=== PATIENT | female | born 1975 | race Caucasian/White ===

== ENCOUNTER 2017-04-18 21:44 | Outpatient (CLI) | payer MEDICARE | END 2017-04-18 21:45 | disposition critical access hospital (66) | LOC: EMS 21:44 | PROVIDERS: ATTEND Surgery | DX: S09.90XA Unspecified injury of head, initial encounter (principal); R41.82 Altered mental status, unspecified; M54.2 Cervicalgia; W19.XXXA Unspecified fall, initial encounter ==

== ENCOUNTER 2017-04-18 22:03 | Emergency (ER) | payer MEDICARE ==
--- NOTE | 2017-04-18 22:13 | ED Physician Documentation ---
PD HPI Fall - Stated complaint Stated Complaint: HBD/FALL - Chief complaint Chief Complaint: General - History obtained from History obtained from: Patient, Family - History of Present Illness Mechanism of injury: Unknown Fall distance: Sitting position, From bed, Less than 5ft Where injury occurred: Home, Bar Timing - onset: How many hours ago (1-2) Injury(ies) location: Head, Face Associated symptoms: LOC Symptoms improve with: Rest Worsens with: Movement Contributing factors: Intoxicated Recently seen: Not recently seen - Additional information Additional information: patient was at a bar tonight, drank alcohol, fell from [employer] with reported LOC (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 ) came home and got into bed, within few minutes, had gotten up and fallen, this time sustaining chin laceration. 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 oriented x 3) - HEENT HEENT: PERRL, EOMI, Pharynx benign, Dentition benign - Neck Neck: No bony TTP - Cardiac Cardiac: RRR, No murmur - Respiratory Respiratory: No respiratory distress, Clear bilaterally - Abdomen Abdomen: Soft, Non tender - Extremities Extremities: No deformity, No tenderness to palpate, Normal ROM s pain, No edema - Neuro Neuro: dietician 2-12 intact, No motor deficit, No sensory deficit PD ED PE EXPANDED - HEENT HEENT Visual: 1 - laceration (2 cm) - Neuro Neuro: Other (slurred speech) Results - Vitals Vitals: Vital Signs - 24 hr 04/19/17 06:35 Heart Rate 90 Respiratory 16 Rate Blood Pressure 120/65 O2 Saturation 98 Oxygen O2 Source Room air - Labs Labs: Laboratory Tests 04/18/17 04/18/17 04/18/17 22:50 22:50 23:05 WBC 10.0 RBC 4.31 Hgb 14.7 Hct 41.8 MCV 97.1 MCH 34.1 H MCHC 35.2 RDW 12.5 Plt Count 249 MPV 7.1 L Neut # 6.8 H Lymph # 2.6 [place] # 0.5 Eos # 0.0 Baso # 0.1 Absolute Nucleated RBC 0.00 Nucleated RBC % 0.0 Sodium 139 Potassium 3.4 L Chloride 103 Carbon Dioxide 23 Anion Gap 13.0 BUN 7 Creatinine 0.7 Estimated GFR (MDRD) 92 Glucose 100 Calcium 9.6 Urine Color YELLOW Urine Clarity CLEAR Urine pH 6.0 Ur Specific [place] <=1.005 Urine Protein NEGATIVE Urine Glucose (UA) NEGATIVE Urine Ketones NEGATIVE Urine Occult Blood NEGATIVE Urine Nitrite NEGATIVE Urine Bilirubin NEGATIVE Urine Urobilinogen 0.2 (NORMAL) Ur Leukocyte Esterase NEGATIVE Ur Microscopic Review NOT INDICATED Urine Culture Comments NOT INDICATED Urine HCG, Qual NEGATIVE Ethyl Alcohol 286.1 - Rads (name of study) CT head Radiology: Prelim report reviewed, See rad report CT c-spine Radiology: Prelim report reviewed, See rad report Procedures - Laceration (location) Face Length in cm: 2 Wound type: Linear, Into subcut fat Neurovascular status: Sensory intact, Motor intact, Vascular intact Anesthesia: Lidocaine 2% Skin layer closure: Nylon, Size #-0 - enter number (5-0), Other (running, with simple interrupteds as well) Other: Patient tolerated well, Neurovascular intact, Tetanus UTD Complexity: Simple PD MEDICAL DECISION MAKING - ED course Complexity details: reviewed results, re-evaluated patient, considered differential, d/w patient, d/w family ED course: patient became more awake and alert during ED stay, and was awake alert and oriented times three prior to discharge home. Departure - Departure Disposition: Home, Self Care Clinical Impression: Fall Qualifiers: Encounter type: initial encounter Qualified Code(s): W19.XXXA - Unspecified fall, initial encounter Laceration of chin Qualifiers: Encounter type: initial encounter Qualified Code(s): S01.81XA - Laceration without foreign body of other part of head, initial encounter Alcohol intoxication Qualifiers: Complication of substance-induced condition: uncomplicated Qualified Code(s): F10.920 - Alcohol use, unspecified with intoxication, uncomplicated Condition: Good Instructions: ED Alcohol Intoxication, ED Head Injury Closed Sleep Mon, ED Laceration Facial Sutr Tape Follow-Up: Елена Ayon MD [Primary Care Provider] - (Follow up in 7-8 days for removal of the stitches) Discharge Date/Time: 04/19/17 07:18
[2017-04-18 22:57] LABS: BASOPHILS # (AUTO) 0.1 10^3/uL (0.0-0.1); BASOPHILS % (AUTO) 1.3 %; EOSINOPHILS % (AUTO) 0.3 %; HCT - HEMATOCRIT 41.8 % (37.0-47.0); HGB - HEMOGLOBIN 14.7 g/dL (12.0-16.0); LYMPHOCYTES # (AUTO) 2.6 10^3/uL (1.5-3.5); LYMPHOCYTES % (AUTO) 25.6 %; MEAN CORPUSCULAR HEMOGLOBIN 34.1 pg (27.0-31.0); MEAN CORPUSCULAR HGB CONC 35.2 g/dL (32.0-36.0); MEAN CORPUSCULAR VOLUME 97.1 fL (81.0-99.0); MEAN PLATELET VOLUME 7.1 fL (7.9-10.8); MONOCYTES # (AUTO) 0.5 10^3/uL (0.0-1.0); MONOCYTES % (AUTO) 4.9 %; NEUTROPHILS # (AUTO) 6.8 10^3/uL (1.5-6.6); NEUTROPHILS % (AUTO) 67.9 %; RED BLOOD COUNT 4.31 10^6/uL (4.20-5.40); RED CELL DISTRIBUTION WIDTH 12.5 % (12.0-15.0)
[2017-04-18 23:25] LABS: BILIRUBIN,URINE NEGATIVE (NEGATIVE)
[2017-04-18 23:27] LABS: HCG UR QUAL NEGATIVE; UA CHARGE (STRIP ONLY) YES; UR CULTURE IF IND NOT INDICATED
[2017-04-18 23:42] LABS: CALCIUM 9.6 mg/dL (8.5-10.3); CREATININE 0.7 mg/dL (0.4-1.0); POTASSIUM 3.4 mmol/L (3.5-5.0)
--- NOTE | 2017-04-19 | CT Preliminary Report ---
Exam: CT CERVICAL SPINE W/O IMPRESSION: Mild degenerative change at C6-C7. No fracture is identified. [facility] SITE ID: [id number]
--- NOTE | 2017-04-19 00:03 | CT Report ---
EXAM: CT CERVICAL SPINE WITHOUT CONTRAST DATE: 04/18/2017 11:34 PM HISTORY: Fall with head injury. COMPARISONS: None. TECHNIQUE: Thin-section axial images were acquired of the cervical spine without contrast. Post-proce ssing: Coronal and sagittal reformats. Other: None. In accordance with CT protocol optimization, one or more of the following dose reduction techniques w ere utilized for this exam: automated exposure control, adjustment of mA and/or KV based on patient s ize, or use of iterative reconstructive technique. FINDINGS: Alignment: Normal. No scoliosis or spondylolisthesis. Bones: No fracture or bone lesion. Interspace Levels/Facets: C1-C2: Unremarkable. C2-C3: Unremarkable. C3-C4: Unremarkable. C4-C5: Unremarkable. C5-C6: Unremarkable. C6-C7: Mild disk space narrowing. Endplate osteophyte mildly narrows the central canal. C7-T1: Unremarkable. Musculature: Normal. No fatty atrophy. Other: The paravertebral and prevertebral soft tissues are normal. The lung apices are clear. IMPRESSION: Mild degenerative change at C6-C7. No fracture is identified. [facility] Referring Provider Line: [phone] SITE ID: [id number]
[2017-04-19] MEDS ORDERED: LIDOCAINE 2% 10 ML MDV ONE (00:24)
--- NOTE | 2017-04-19 00:35 | CT Preliminary Report ---
Exam: CT HEAD W/O Impression: Extensive white matter hypodensity within the cerebral hemispheres bilaterally, suspect some involvem ent of the left middle cerebellar peduncle. 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 Findings appear more pronounced than in 2007. Ventricles are slitlike, no sulci visible over both convexities. Similar findings present on prior im aging. An element of cerebral edema or recent infarct difficult to exclude with this technique. [facility] The above findings were discussed with Dr. Ruiz by Dr. Peterson Banks at 00:31 hrs on 04/19/17. SITE ID: [id number]
--- NOTE | 2017-04-19 00:38 | CT Report ---
EXAM: CT HEAD EXAM DATE: 04/18/2017 11:26 PM. CLINICAL HISTORY: Fall, head injury. History of CADASIL COMPARISON: 06/23/[address] and MR brain.. TECHNIQUE: Multiaxial CT images were obtained from the foramen magnum to the vertex. IV contrast: Non e. Reformats: Coronal. In accordance with CT protocol optimization, one or more of the following dose reduction techniques w ere utilized for this exam: automated exposure control, adjustment of mA and/or KV based on patient s ize, or use of iterative reconstructive technique. FINDINGS: Extensive roughly symmetric white matter hypodensity throughout both cerebral hemispheres, this is mo re pronounced than in 2007. Within the posterior fossa, a hypodensity within the left middle cerebellar peduncle is questionably present. This is an area frequently degraded by artifact. No sulci are visible over both convexities. Ventricles are somewhat slitlike, similar findings presen t on prior imaging. No midline shift. No definite hemorrhage. Basal cisterns are visible. Skull base, visualized paranasal sinuses, mastoids and calvarium are unremarkable. Impression: Extensive white matter hypodensity within the cerebral hemispheres bilaterally, suspect some involvem ent of the left middle cerebellar peduncle. 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 Findings appear more pronounced than in 2007. Ventricles are slitlike, no sulci visible over both convexities. Similar findings present on prior im aging. An element of cerebral edema or recent infarct difficult to exclude with this technique. [facility] The above findings were discussed with Dr. Ruiz by Dr. Peterson Banks at 00:31 hrs on 04/19/17. Referring Provider Line: [phone] SITE ID: [id number]
[2017-04-19] MEDS ORDERED: BACITRACIN OINT TOP STA (06:38)
[2017-04-19 06:51] VITALS: BP 120/65
[2017-04-19] MEDS ORDERED: BACITRACIN OINT TOP ONE (06:53)
== END 2017-04-19 07:18 | disposition home or self-care (01) ==
LOC: EDUNIT# → EDBD → ED 22:03
DX: S01.81XA Laceration without foreign body of other part of head, initial encounter (principal); W06.XXXA Fall from bed, initial encounter; Y92.013 Bedroom of single-family (private) house as the place of occurrence of the external cause; F10.129 Alcohol abuse with intoxication, unspecified; Z86.73 Personal history of transient ischemic attack (TIA), and cerebral infarction without residual deficits; Z79.82 Long term (current) use of aspirin
CPT/HCPCS: 12011; 36415; 70450; 72125; 80048; 81003; 81025; 85025; 99283; 99284; A9270; G0480; 80320; 81001; 87086

== ENCOUNTER 2019-02-02 16:58 | Outpatient (CLI) | payer MEDICARE ==
--- NOTE | 2019-02-02 18:58 | Ultrasound Report ---
Reason: LOCALIZED SWELLING ON BILATERAL LEGS,FACTOR V DEFI Procedure Date: 02/02/2019 Accession Number: [id number] / [id number] Procedure: US - Duplex Ext Veins Bilateral CPT Code: FULL RESULT: EXAM: BILATERAL LOWER EXTREMITY VENOUS ULTRASOUND EXAM DATE: 02/02/2019 06:40 PM. CLINICAL HISTORY: LOCALIZED SWELLING ON BILATERAL Legs, factor V DEFI. COMPARISON: None. TECHNIQUE: Real-time sonographic vascular imaging was performed by the admissions officer through the lower extremities utilizing both color-flow and Doppler spectral analysis. Multiple metals sales representative static images were saved for review. FINDINGS: Right: Common Femoral Vein (CFV): Normal. CFV-GSV Junction: Normal. Profunda Femoral Vein (PFV): Normal. Femoral Vein (FV) Prox: Normal. Femoral Vein (FV) Mid: Normal. Femoral Vein (FV) Dist: Normal. Popliteal Vein: Normal. Posterior Tibial Veins: Limited visualization, grossly negative. Peroneal Veins: Limited visualization, grossly negative. Left: Common Femoral Vein (CFV): Normal. CFV-GSV Junction: Normal. Profunda Femoral Vein (PFV): Normal. Femoral Vein (FV) Prox: Normal. Femoral Vein (FV) Mid: Normal. Femoral Vein (FV) Dist: Normal. Popliteal Vein: Normal. Posterior Tibial Veins: Limited visualization, grossly negative. Peroneal Veins: Limited visualization, grossly negative. Other: None. IMPRESSION: No evidence for deep venous thrombosis bilaterally. [facility] The call report notification system was initiated by Dr. [employer]ak Altman at 06:57 PM on 02/02/2019.
== END 2019-02-02 16:59 | disposition home or self-care (01) ==
LOC: DI 16:58
PROVIDERS: ATTEND Family Medicine
DX: D68.2 Hereditary deficiency of other clotting factors (principal); R22.43 Localized swelling, mass and lump, lower limb, bilateral
CPT/HCPCS: 93970